=== PATIENT | female | born 1975 | race Asian ===

== ENCOUNTER 2020-09-16 14:37 | Emergency (ER) | payer BC ==
[2020-09-16 14:56] VITALS: TEMP 98.1; BMI 29.2
[2020-09-16 19:56] VITALS: BP 117/66; PULSE 90
== END 2020-09-16 19:56 | disposition home or self-care (01) ==
LOC: JER 14:37 → JCOVINFU 14:37 → JER 19:56
DX: U07.1 COVID-19 (principal)
CPT/HCPCS: 71046-TC-FY; 99283-25